=== PATIENT | female | born 1980 | race Caucasian/White ===

== ENCOUNTER 2021-11-28 05:45 | Inpatient (IN) ==
[2021-11-28] MEDS ORDERED: Famotidine 20 MG/2 ML VIAL IVP ONE (06:08)
[2021-11-28] MEDS ORDERED: Azithromycin 500 MG in 0.9 % Sodium Chloride 250 ML IVPB PRN (06:08)
[2021-11-28] MEDS ORDERED: Metoclopramide 10 MG/2 ML VIAL IVP ONE (06:08)
[2021-11-28] MEDS ORDERED: CeFAZolin 2,000 MG/120 ML BAG IVPB ONE (06:08)
[2021-11-28] MEDS ORDERED: Ringers Solution, Lactated 1,000 ML IVC ONE (06:08)
[2021-11-28] MEDS ORDERED: Ringers Solution, Lactated 1,000 ML IVC SCH (06:15)
[2021-11-28] MEDS ORDERED: Oxytocin 30 UNIT/503 ML BAG IVC SCH ×2 (06:15→11:41)
[2021-11-28] MEDS ORDERED: Acetaminophen IV 1,000 MG/100 ML BAG IVPB PRN (06:19)
[2021-11-28] MEDS ORDERED: *HR* HYDROmorphone PF 0.5 MG/0.5 ML SYRINGE IVP PRN (06:19)
[2021-11-28] MEDS ORDERED: *HR* Meperidine 25 MG/ML SYRINGE IVP PRN (06:19)
[2021-11-28] MEDS ORDERED: Promethazine 6.25 MG in Water for inj. (sterile) 20 ML IVPB PRN (06:19)
[2021-11-28] MEDS ORDERED: *HR* Labetalol 20 MG/4 ML SYRINGE IVP PRN (06:19)
[2021-11-28 06:41] LABS: Basophils % 0.4 %; Eosinophils # 0.1 K/mcL (0.0-0.6); Hemoglobin 12.8 g/dL (11.5-15.4); Immature Granulocytes % 0.5 % (0-4); Lymphocytes # 2.1 K/mcL (0.6-4.6); Lymphocytes % 27.1 %; Mean Corpuscular HGB Conc 34.6 g/dL (31.6-35.5); Mean Corpuscular Hemoglobin 31.9 pg (28.0-33.3); Mean Corpuscular Volume 92.3 fL (83.0-100.0); Mean Platelet Volume 11.4 fL (9.4-12.4); Monocytes # 0.8 K/mcL (0.0-1.3); Monocytes % 9.9 %; Neutrophils # 4.8 K/mcL (1.6-8.9); Platelet Count 217 K/mcL (140-400); Red Blood Count 4.01 M/mcL (3.82-4.97); Segmented Neutrophils % 61.1 %; White Blood Count 7.9 K/mcL (4.3-11.1)
[2021-11-28] MEDS ORDERED: *HR* Morphine Sulfate/PF 10 MG/10 ML AMPUL ONE (06:53)
[2021-11-28] MEDS ORDERED: Ondansetron 4 MG/2 ML VIAL ONE (06:54)
[2021-11-28] MEDS ORDERED: Ketorolac 30 MG/ML VIAL ONE (06:54)
[2021-11-28] MEDS ORDERED: EPHEDrine 50 MG/ML VIAL ONE (06:54)
[2021-11-28] MEDS ORDERED: *HR* FentaNYL (PF) 100 MCG/2 ML VIAL ONE (06:54)
[2021-11-28] MEDS ORDERED: Acetaminophen IV 1,000 MG/100 ML BAG IVPB ONE (06:55)
[2021-11-28] MEDS ORDERED: Ringers Solution, Lactated 1,000 ML ONE (06:55)
[2021-11-28] MEDS ORDERED: *HR* Phenylephrine 10 MG/ML VIAL ONE (06:58)
[2021-11-28 08:40] LABS: Amphetamine Screen,Urine Negative ng/mL (Cutoff=1000); Barbiturate Screen,Urine Negative ng/mL (Cutoff=200); Benzodiazepines Screen,Urine Negative ng/mL (Cutoff=200); Cannabinoid Screen,Urine Negative ng/mL (Cutoff = 50); Cocaine Screen,Urine Negative ng/mL (Cutoff= 300); Opiate Screen,Urine Negative ng/mL (Cutoff=300); Phencyclidine Screen,Urine Negative ng/mL (Cutoff=25)
[2021-11-28] MEDS ORDERED: Ondansetron 4 MG/2 ML VIAL IVP PRN ×2 (09:43→11:41)
[2021-11-28] MEDS ORDERED: Simethicone 80 MG TAB.CHEW PO PRN (11:41)
[2021-11-28] MEDS ORDERED: Metoclopramide 10 MG/2 ML VIAL IVP PRN (11:41)
[2021-11-28] MEDS ORDERED: *HR* OxyCODONE Immed Rel 5 MG TABLET PO PRN (11:41)
[2021-11-28] MEDS: Ibuprofen 600 MG TABLET PO SCH ×3 (11:57→20:17)
[2021-11-28] MEDS: metroNIDAZOLE 500 MG TABLET PO SCH ×3 (11:57→20:16)
[2021-11-28] MEDS: Acetaminophen 325 MG TABLET PO SCH ×3 (11:58→20:16)
[2021-11-28] MEDS: Prenatal Vit/FA 1 EACH TABLET PO SCH (11:58)
[2021-11-28] MEDS ORDERED: CeFAZolin 2,000 MG/120 ML BAG IVPB SCH (16:00)
[2021-11-28] MEDS ORDERED: Lanolin 7 G OINT...G. TP PRN (18:28)
[2021-11-29] MEDS ORDERED: CeFAZolin 2,000 MG/120 ML BAG IVPB SCH (02:00)
[2021-11-29] MEDS: Ibuprofen 600 MG TABLET PO SCH ×4 (05:05→23:48)
[2021-11-29] MEDS: Acetaminophen 325 MG TABLET PO SCH ×4 (05:05→23:50)
[2021-11-29 05:37] LABS: Basophils % 0.3 %; Eosinophils % 0.4 %; Hematocrit 28.2 % (35.3-44.9); Immature Granulocytes % 0.6 % (0-4); Lymphocytes # 2.1 K/mcL (0.6-4.6); Lymphocytes % 19.1 %; Mean Corpuscular Hemoglobin 32.7 pg (28.0-33.3); Mean Corpuscular Volume 95.9 fL (83.0-100.0); Mean Platelet Volume 11.3 fL (9.4-12.4); Monocytes % 9.4 %; Neutrophils # 7.6 K/mcL (1.6-8.9); Platelet Count 164 K/mcL (140-400); Red Blood Count 2.94 M/mcL (3.82-4.97); Segmented Neutrophils % 70.2 %; White Blood Count 10.9 K/mcL (4.3-11.1)
[2021-11-29 05:38] LABS: Hemoglobin 9.6 g/dL (11.5-15.4)
[2021-11-29] MEDS: Prenatal Vit/FA 1 EACH TABLET PO SCH (08:00)
[2021-11-29] MEDS: metroNIDAZOLE 500 MG TABLET PO SCH ×2 (08:01→17:42)
[2021-11-30] MEDS: Ibuprofen 600 MG TABLET PO SCH (05:32)
[2021-11-30] MEDS: Acetaminophen 325 MG TABLET PO SCH (05:32)
[2021-11-30 07:50] VITALS: BP 113/77; PULSE 60; TEMP 97.5; O2SAT 98
[2021-11-30] MEDS: Prenatal Vit/FA 1 EACH TABLET PO SCH (08:40)
== END 2021-11-30 11:25 | disposition home or self-care (01) | DRG 788 ==
LOC: 1NENULAB 05:48 → 1NENUOBS 10:59
PROVIDERS: ADMIT Obstetrics & Gynecology; ATTEND Obstetrics & Gynecology